=== PATIENT | female | born 1965 | race African-American/Black ===

== ENCOUNTER 2022-02-11 11:32 | Outpatient (CLI) | payer OTHER | END 2022-02-11 11:33 | disposition home or self-care (01) | LOC: CSHLAB 11:32 | PROVIDERS: ATTEND Internal Medicine Gastroenterology | DX: Z20.822 Contact with and (suspected) exposure to COVID-19 (principal); R10.9 Unspecified abdominal pain; R11.2 Nausea with vomiting, unspecified; K63.5 Polyp of colon | CPT/HCPCS: 87811 ==

== ENCOUNTER 2022-02-14 15:11 | Outpatient (CLI) | payer OTHER | END 2022-02-14 15:12 | disposition home or self-care (01) | LOC: CSHLAB 15:11 | PROVIDERS: ATTEND Internal Medicine Gastroenterology | DX: Z20.822 Contact with and (suspected) exposure to COVID-19 (principal); R10.9 Unspecified abdominal pain; R11.2 Nausea with vomiting, unspecified; K63.5 Polyp of colon | CPT/HCPCS: 87811 ==

== ENCOUNTER 2022-02-17 12:36 | Day surgery (SDC) | payer OTHER ==
[2022-02-07 14:35] VITALS: BMI 27.6
[2022-02-17] MEDS ORDERED: Lidocaine 1% MPF 2 ML VIAL ONE (13:03)
[2022-02-17] MEDS ORDERED: Lidocaine 1% PF 5 ML VIAL ONE (13:19)
[2022-02-17] MEDS ORDERED: Lidocaine Viscous Sol 2% 15 ml UD Cup ONE (13:19)
[2022-02-17] MEDS ORDERED: PROPOFOL 60 ML ONE (13:19)
[2022-02-17] MEDS ORDERED: PHENYLEPHRINE-NS 100 MCG/ML 10 ML SYRINGE ONE (13:43)
== END 2022-02-17 14:35 | disposition home or self-care (01) ==
LOC: CSHSDC 12:36
PROVIDERS: ATTEND Internal Medicine Gastroenterology
PROC: 0DJD8ZZ Inspection of Lower Intestinal Tract, Via Natural or Artificial Opening Endoscopic (ICD-10-PCS; principal; 2022-02-17)
PROC: 0DB68ZZ Excision of Stomach, Via Natural or Artificial Opening Endoscopic (ICD-10-PCS; principal; 2022-02-17)
DX: K29.00 Acute gastritis without bleeding (principal); K64.8 Other hemorrhoids; K44.9 Diaphragmatic hernia without obstruction or gangrene; K22.5 Diverticulum of esophagus, acquired; K20.90 Esophagitis, unspecified without bleeding; Z86.010 Personal history of colon polyps; Z20.822 Contact with and (suspected) exposure to COVID-19; F41.9 Anxiety disorder, unspecified; F32.A Depression, unspecified; Z88.5 Allergy status to narcotic agent
CPT/HCPCS: 88305; J2704